=== PATIENT | female | born 1995 | race Caucasian/White ===

== ENCOUNTER 2016-12-16 22:20 | Emergency (ER) | payer MEDICAID ==
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
== END 2016-12-16 23:20 | disposition home or self-care (01) ==
LOC: ER 22:20
DX: B35.4 Tinea corporis (principal)